=== PATIENT | male | born 1965 | race Caucasian/White ===

== ENCOUNTER → 2020-08-25 | Outpatient (CLI) | payer BC, OTHER ==
[~2020-08-25] MED LIST: ACETAMINOPHEN325 M1 PO; ASA81BEC PO; ATORVASTATIN CA80 MG PO; CELEBREX 200 M200 M1; CLOPIDOGREL75 MG PO; COLACE 100 MG100 MG PO; CYCLOBENZAPRINE10 MG PO; DAILY MULTIPLE1 EACH PO; ENALAPRIL MALEA20 MG PO; FARXIGA10 MG PO; FLEXERIL PO; GLIPIZIDE 10 MG10 M1 PO; GLUCOPHAGE XR500 MG PO; GLUCOPHAGE500 MG PO; GLUCOTROL10 MG PO; HYDROCHLOROTH12.5 MG PO; HYDROCODON-ACE1 EAC5 PO; HYDROCODONE-AP1 EA15 PO; IBUPROFEN 600600 M1 PO; LANTUS SOL100 UNIT/1 SUBQ; LEVOTHROID150 MC1 PO; METFORMIN HCL1000 MG PO; METOPROLOL TAR100 MG PO; MULTIVITAMINS1 EAC7 PO; NAFCILLIN 2 GM A2 G1 IV; NORCO 5-325 TA1 EACH; PERCOCET 7.5-31 EACH PO; SIMVASTATIN40 MG PO; TOPROL XL100 MG PO; TRAMADOL 50 MG50 MG PO; XARELTO10 M1; XARELTO10 M1 PO
== END ==
LOC: LAB 08:07
PROVIDERS: ATTEND Orthopaedic Surgery Sports Medicine
DX: Z01.812 Encounter for preprocedural laboratory examination (principal); Z20.828 Contact with and (suspected) exposure to other viral communicable diseases

== ENCOUNTER 2020-08-29 06:06 | Day surgery (SDC) | payer BC, OTHER ==
[~2020-08-29] VITALS: Ht 170.2 cm; Wt 90.3 kg
--- NOTE | 2020-08-29 07:18 | EKG ---
[place] [address] [facility] [place] [address] ELECTROCARDIOGRAM REPORT Name: KAYLA HOBBS Room #: 150-2 [facility] M.R.#: [id number] Admission: 08/29/20 Attend Phys: Keegan Hernández Discharge: Date of : 67 Report #: [id number] 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
[2020-08-29 07:43] VITALS: BP 127/71
[2020-08-29 09:19] VITALS: BP 127/71
--- NOTE | 2020-09-03 10:59 | O ---
[place] [address] OPERATIVE REPORT Name: KAYLA HOBBS Room #: DEP SD Gómez.#: [id number] Admission: 08/29/20 Attend Phys: Keegan Hernández Discharge: 08/29/20 Date of : 67 Report #: [id number] THIS REPORT FOR: cc: Narda Villar MD, Michelle MD VanDenBerghe,Keegan Becerra MD ~ DATE OF SERVICE: 08/29/2020 PREOPERATIVE DIAGNOSIS: Left distal biceps tendon tear. POSTOPERATIVE DIAGNOSIS: Left distal biceps tendon tear. PROCEDURE PERFORMED: Open left distal biceps tendon repair. SURGEON: Keegan Palmer MD HEAD OPERATOR SULFIDE: Josiane Pedroza PA-C. ANESTHESIA: General with preoperative ultrasound-guided interscalene block. FLUIDS: 500 mL crystalloid. ESTIMATED BLOOD LOSS: Approximately 5 mL. TOURNIQUET TIME: 41 minutes at 250 mmHg. IMPLANTS UTILIZED: Arthrex distal biceps tendon repair. DESCRIPTION OF PROCEDURE: After proper identification of the patient and operative site in preoperative holding area, the operative site was signed by myself. Prophylactic antibiotics given. The patient elected to receive a block after reviewing the risks, benefits, alternatives and potential complications with anesthesia. After a satisfactory block, the patient was then brought back to the operative suite after induction of satisfactory general anesthesia per LMA. The left upper extremity was evaluated. Biceps tendon still appeared to be palpable and completely retracted. The limb was sterilely prepped and draped in the usual manner. Sterile tourniquet was utilized. The arm was lightly exsanguinated with an Esmarch and this was inflated to 250 mmHg. An incision overlying the anterior aspect of the elbow was planned. This was longitudinal in nature, did not cross the elbow flexion crease. Skin only was incised sharply and then the sensory and lateral antebrachial cutaneous nerves identified and protected as well as the underlying venous structures. The dissection was carefully taken down to the level of the bicipital tendon sheath, which was still intact. Several crossing collateral vessels were ligated and cauterized with bipolar cautery. Using a right angle clamp, a small perforation [address] [place] [address] OPERATIVE REPORT Name: KAYLA HOBBS Room #: DEP SD M.R.#: [id number] Admission: 08/29/20 Attend Phys: Keegan Hernández Discharge: 08/29/20 Date of : 67 Report #: [id number] in the tendon sheath was created and then the clamp was used to retract from within the tendon sheath and this was carefully and longitudinally excised revealing high-grade near-complete partial-thickness tear of the distal biceps tendon. There were few remaining fibers more ulnarly based which was consistent with the MRI that were still intact. There was some tendinosis of the more distal aspect of the tendon and tearing with retraction of these fibers. The few remaining fibers were then carefully divided. The radial tuberosity was then cleared of soft tissues under direct visualization and the frayed portion of the tendon was carefully debrided and a whipstitch was applied on its distal end using #2 FiberWire. Tendon was sized to 7 mm, was of sufficient quality for repair and a guide pin was inserted under direct visualization into the radial tuberosity. Trajectory was planned near and then just the far cortex was penetrated and a 7 mm acorn reamer was used to ream the bone socket. Excess bone debris was removed with antibiotic irrigant. This was then suctioned free. No remaining bony debris was left. Next, the Arthrex distal biceps button was delivered over the suture ends. It was passed into the tunnel and just past the far cortex toggled. It engaged the cortex, held nicely and with the elbow flexed position, the tendon was carefully advanced into the bone socket until it was fully seated. Sutures were then tied using arthroscopic knot pusher. This reduced nicely and the suture ends were then trimmed. The patient could be brought back to nearly full elbow extension before much tension was placed on the repair construct. The wound was thoroughly irrigated with antibiotic irrigant multiple times. Tourniquet was deflated. Excellent hemostasis was achieved. The surrounding neurovascular structures were intact and at this point, the subcutaneous tissues were closed with 2-0 Vicryl followed by running 3-0 Monocryl. Steri-Strips were applied. Sterile dressing and posterior long-arm splint were applied and at the time of dictation, the patient was still in the operative suite with anticipated discharge to the recovery room in stable condition. A qualified rehab care assistant utilized throughout the entire procedure to aid in patient limb positioning, visualization and retraction of the soft tissues, instrument passage, closure and sling and dressing application. Blunt retractors were utilized throughout the entire process. No retractors were placed around the radius. <ELECTRONICALLY SIGNED> By: Keegan Palmer MD 09/03/20 1059 [id number] Keegan Palmer MD /nt
== END 2020-08-29 10:00 | disposition home or self-care (01) ==
LOC: OR 06:06 → TBA 06:12 → OR 10:00
PROVIDERS: ATTEND Orthopaedic Surgery Sports Medicine
DX: S46.212A Strain of muscle, fascia and tendon of other parts of biceps, left arm, initial encounter (principal); I10 Essential (primary) hypertension; E11.9 Type 2 diabetes mellitus without complications; E78.5 Hyperlipidemia, unspecified; E03.9 Hypothyroidism, unspecified; M19.90 Unspecified osteoarthritis, unspecified site; K21.9 Gastro-esophageal reflux disease without esophagitis; Z98.890 Other specified postprocedural states; Z79.899 Other long term (current) drug therapy; Z85.828 Personal history of other malignant neoplasm of skin; Z79.82 Long term (current) use of aspirin; Z91.041 Radiographic dye allergy status; Z88.8 Allergy status to other drugs, medicaments and biological substances; X58.XXXA Exposure to other specified factors, initial encounter; Y93.89 Activity, other specified; Y92.89 Other specified places as the place of occurrence of the external cause; Y99.8 Other external cause status
CPT/HCPCS: 50010; 50101; 50386; 52123; 56524; 56526; 56668; 57006; 57091; 57178; 58477; 62110; 62900; 70005